=== PATIENT | male | born 1950 | race Caucasian/White ===

== ENCOUNTER → 2016-07-07 | Day surgery (SDC) | payer OTHER ==
[~2016-07-07] MED LIST: LACTATED RINGER'S 1000 ML INJ 1,000 ML ONE; PROPOFOL 200 MG/20 ML AMP IV ONE
== END | disposition home or self-care (01) ==
LOC: ESDC 09:20
PROVIDERS: ATTEND Internal Medicine Gastroenterology
DX: R63.4 Abnormal weight loss (principal); K29.70 Gastritis, unspecified, without bleeding; K22.9 Disease of esophagus, unspecified; D12.3 Benign neoplasm of transverse colon
CPT/HCPCS: 00740; 00810; 43239; 45385; 88305; 88312; J3010; J7120

== ENCOUNTER → 2016-07-26 | Day surgery (SDC) | payer OTHER ==
[~2016-07-26] MED LIST changes: +LIDOCAINE 1%/EPINEPHrine 1:100,000 SOLN 30 ML VIAL ONE; -PROPOFOL 200 MG/20 ML AMP IV ONE; +PROPOFOL 500 MG/50 ML BTL IV ONE; +SODIUM CHLORIDE 0.9% INJ 10 ML ONE; +ceFAZolin 2 GM PREMIX 50 ML ONE
--- NOTE | 2016-07-26 12:58 | TN ---
cc: RA MCCORD M.D. DATE OF SURGERY: 07/26/2016 PREOPERATIVE DIAGNOSIS Progressive bilateral upper extremity and shoulder muscle weakness. POSTOPERATIVE DIAGNOSIS Progressive bilateral upper extremity and shoulder muscle weakness. PROCEDURE PERFORMED Right trapezius muscle biopsy. SURGEON Ra Mccord HEALTH INFORMATICS SPECIALIST [facility] Jackson ANESTHESIA TIVA with local. COMPLICATIONS None. INDICATION FOR PROCEDURE Mr. Moon is a pleasant 65-year-old gentleman who has developed progressive bilateral upper extremity weakness in the neck and shoulders as well as the upper arms. He has been worked up extensively by his medical team and it was felt a muscle biopsy was warranted. The right trapezius muscle was requested as this tended to be the area where he had most of the problems. The risks and benefits of right trapezius muscle biopsy was discussed with the patient and he was agreeable. DETAILS OF PROCEDURE The patient was identified, brought to the operating room and placed in the left lateral decubitus position with appropriate padding for hips, knees, shoulders and ankles. The right shoulder was then prepped and draped in the standard surgical fashion. The patient was then lightly sedated. 0.25% Marcaine was injected around the right shoulder and a transverse incision was made several centimeters midway between the neck and the shoulder blade. Dissection was carried down through subcutaneous tissue using sharp dissection. The muscle fascia was identified and opened with sharp dissection. The muscle bellies were identified and found to be very atrophic and thin. The muscle belly was dissected out and a muscle clamp was applied proximally and distally. The muscle was then transected distal to the clamp and the muscle was sent to pathology. A couple of extra strand of muscle that was dissected out was also sent free without being in the clamp. The wound was then irrigated with normal saline solution. No bleeding was noted. Additional 0.25% Marcaine was injected. The wound was then closed in two layers using a 2-0 Vicryl and a 4-0 Vicryl. Sterile dressings were applied and the patient was awakened and brought to Recovery in stable condition. The [facility] facilities maintenance assistant was medically necessary due to her specialized surgical skills and knowledge of my surgical technique. MD SHEILA Lin/VALENTIN /12:40 PM :50 PM MTDLink
== END | disposition home or self-care (01) ==
LOC: ESDC 10:41
PROVIDERS: ATTEND Surgery Trauma Surgery
DX: M62.81 Muscle weakness (generalized) (principal)
CPT/HCPCS: 01610; 20205; J0690; J3010; J7120; 88305; 88313

== ENCOUNTER → 2016-09-13 | Day surgery (SDC) | payer OTHER ==
[~2016-09-13] MED LIST changes: +LIDOCAINE 1%/EPINEPHrine 1:100,000 SOLN 20 ML VIAL ONE; -LIDOCAINE 1%/EPINEPHrine 1:100,000 SOLN 30 ML VIAL ONE; +MIDAZOLAM HCL 2 MG/2 ML VIAL ONE; +ONDANSETRON HCL 4 MG/2 ML VIAL IV PUSH ONE; +PROPOFOL 200 MG/20 ML AMP IV ONE; -PROPOFOL 500 MG/50 ML BTL IV ONE
--- NOTE | 2016-09-13 12:56 | TN ---
cc: RA MCCORD M.D. DATE OF SURGERY: 09/13/2016 PREOPERATIVE DIAGNOSIS Progressive muscle wasting and atrophy. POSTOPERATIVE DIAGNOSIS Progressive muscle wasting and atrophy. PROCEDURE PERFORMED Right biceps muscle biopsy. SURGEON Ra Mccord FLESHING MACHINE OPERATOR Laura Skaggs, MS III ANESTHESIA General LMA. COMPLICATIONS None. INDICATION FOR PROCEDURE Mr. Moon is a pleasant 66-year-old gentleman who unfortunately has progressive muscle weakness. It is mainly in his upper extremities. He was referred for a muscle biopsy. The risks and benefits of a muscle biopsy was discussed with him and he was agreeable. The patient selected the right biceps muscle as the biopsy location site. DETAILS OF PROCEDURE The patient was identified, brought to the operating room and placed supine on the operating table. After adequate general anesthesia was achieved with LMA, the right upper extremity was circumferentially prepped and draped in standard surgical fashion. 0.25% Marcaine was injected into the skin and subcutaneous tissue in the midportion of the upper arm on the flexor surface. A longitudinal incision was made. Dissection was carried down through the subcutaneous tissue down to the level of the muscle fascia. The muscle fascia was then excised longitudinally and the muscle belly was immediately identified. The muscle belly was dissected with a mosquito clamp. A tongue blade was then inserted underneath the muscle. The muscle was then secured on both ends using a 2-0 silk suture. The muscle was then transected and wrapped in a moist saline gauze and sent to pathology immediately as a fresh specimen. No bleeding was noted from the muscle belly. The wound was irrigated copiously with normal saline. The wound was injected with additional local anesthetic. The muscle fascia was then closed with 3-0 Vicryl in a continuous running fashion. The subcutaneous tissue was closed with 3-0 Vicryl and the skin was closed with 4-0 Vicryl. The patient tolerated the procedure well. He was awakened and brought to Recovery in stable condition. MD SHEILA Lin/VALENTIN /10:49 AM /12:50 PM
== END | disposition home or self-care (01) ==
LOC: ESDC 08:49
PROVIDERS: ATTEND Surgery Trauma Surgery
DX: M62.59 Muscle wasting and atrophy, not elsewhere classified, multiple sites (principal)
CPT/HCPCS: 01710; 20205; 88305; 88341; 88342; 88346; 88348; 88350; J0690; J2250; J2405; J3010; J7120